=== PATIENT | female | born 1960 | race Caucasian/White ===

== ENCOUNTER 2021-06-25 10:35 | Day surgery (SDC) | payer MEDICAID ==
[2021-06-25] MEDS ORDERED: SODIUM CHLORIDE 0.9% 1,000 ML IV ONE (11:00)
[2021-06-25] MEDS ORDERED: SODIUM CHLORIDE 0.9% 1,000 ML ONE (11:04)
[2021-06-25 11:51] LABS: COVID AG,FIA SOURCE NASOPHARYNGEAL
[2021-06-25] MEDS ORDERED: FentaNYL CITRATE PF 100 MCG/2 ML VIAL ONE (12:00)
[2021-06-25] MEDS ORDERED: MIDAZOLAM HCL 5 MG/ML VIAL ONE (12:00)
== END 2021-06-25 14:50 | disposition home or self-care (01) ==
LOC: SURGERY 10:35
PROVIDERS: ATTEND Internal Medicine Gastroenterology
DX: Z12.11 Encounter for screening for malignant neoplasm of colon (principal); K57.30 Diverticulosis of large intestine without perforation or abscess without bleeding; K64.8 Other hemorrhoids; Z79.899 Other long term (current) drug therapy; Z98.890 Other specified postprocedural states
CPT/HCPCS: 45378; 87426; C9803; J2250; J3010; J7030